=== PATIENT | female | born 1965 | race Caucasian/White ===

== ENCOUNTER 2016-03-29 16:45 | Emergency (ER) | payer OTHER ==
[2016-03-29 16:49] VITALS: BP 138/78; PULSE 85; TEMP 97.7; BMI 32.0
[2016-03-29] MEDS ORDERED: SODIUM CHLORIDE 500 ML IV STA ×2 (17:07→17:28)
--- NOTE | 2016-03-29 17:10 | PDOC ---
History of Present Illness - History of Present Illness Initial Comments: 03/29/16 17:28 The patient is a 50 year old female, with a significant past medical history of hypertension, who presents to the emergency department with diarrhea since Tuesday. She reports returning from [facility] on 03/26/16 after staying there for a month. She reports about 9 episodes of diarrhea today, last episode when she arrived to the ED, which she notes was watery and brown with no trace of blood. She denies chest pain, shortness of breath, headache and dizziness. She denies fever, chills, nausea, vomit, and constipation. She denies dysuria, frequency, urgency and hematuria. Past surgical history: and cervical Social history: denies any toxic habits <America Kaminski - Last Filed: 03/29/16 17:28> - History of Present Illness Initial Comments: 03/29/16 18:24 Physical exam: Alert and oriented 3, well-developed well-nourished, no acute distress, cheerful and cooperative Afebrile, vital signs normal HEENT clear. No pallor or icterus Neck supple without bruit mass or nodes Chest clear bilaterally, full breath sounds CV S1 and S2 normal without murmur rub or gallop pulses full and symmetric no JVD or edema. No tachycardia Abdomen nondistended, normal bowel sounds, soft without mass tenderness or organomegaly Skin clear, no rash, adequate turgor and wet mucous membranes Neurological intact Extremities no CCE Impression: Traveler's diarrhea, recently returned from one month [facility]. No blood in the stool. No fever and no abdominal pain Plan: Symptomatic treatment, fluids, and follow-up if no improvement. Fully ambulatory and in no distress upon discharge with her family to follow-up as directed. No further diarrhea after Imodium therapy. <Mati Borja - Last Filed: 03/29/16 18:26> - General Chief Complaint: Diarrhea Stated Complaint: DIARRHEA Time Seen by Provider: 03/29/16 16:55 Past History <America Kaminski - Last Filed: 03/29/16 17:28> - Past Medical History Anemia: No Asthma: No Cancer: No Cardiac Disorders: No CVA: No COPD: No DVT: No HTN: Yes Hypercholesterolemia: Yes - Immunization History Td Vaccination: No TDAP Vaccination: No Immunization Up to Date: No - Psycho/Social/Smoking Cessation Hx Anxiety: Yes Suicidal Ideation: No Smoking Status: No Smoking History: Never smoked Have you smoked in the past 12 months: No Number of Cigarettes Smoked Daily: 0 Cigars Per Day: 0 Hx Alcohol Use: No Drug/Substance Use Hx: No Substance Use Type: None <Mati Borja - Last Filed: 03/29/16 18:26> - Past Medical History Allergies/Adverse Reactions: Allergies Allergy/AdvReac Type Severity Reaction Status Date / Time Penicillins Allergy Verified 03/29/16 16:46 Home Medications: Ambulatory Orders Loperamide HCl [Imodium -] 2 - 4 mg PO Q8H PRN #20 capsule 03/29/16 Review of Systems - Review of Systems Able to Perform ROS?: Yes Comments:: 03/29/16 17:28 CONSTITUTIONAL: Absent: fever, chills, diaphoresis, generalized weakness, malaise, loss of appetite HEENT: Absent: rhinorrhea, nasal congestion, throat pain, throat swelling, difficulty swallowing, mouth swelling, ear pain, eye pain, visual Changes CARDIOVASCULAR: Absent: chest pain, syncope, palpitations, irregular heart rate, lightheadedness , peripheral edema RESPIRATORY: Absent: cough, shortness of breath, dyspnea with exertion, orthopnea, wheezing, stridor, hemoptysis GASTROINTESTINAL: (+) diarrhea, Absent: abdominal pain, abdominal distension, nausea, vomiting, constipation, melena, hematochezia GENITOURINARY: Absent: dysuria, frequency, urgency, hesitancy, hematuria, flank pain, genital pain MUSCULOSKELETAL: Absent: myalgia, arthralgia, joint swelling SKIN: Absent: rash, itching, pallor HEMATOLOGIC/IMMUNOLOGIC: Absent: easy bleeding, easy bruising, lymphadenopathy, frequent infections ENDOCRINE: Absent: unexplained weight gain, unexplained weight loss, heat intolerance, cold intolerance NEUROLOGIC: Absent: headache, focal weakness or paresthesia, dizziness, unsteady gait, seizure, mental status changes, bladder or bowel incontinence PSYCHIATRIC: Absent: anxiety, depression, suicidal or homicidal ideation, hallucinations <America Kaminski - Last Filed: 03/29/16 17:28> *Physical Exam - Vital Signs Last Vital Signs Temp Pulse Resp BP Pulse Ox 97.7 F 85 18 138/78 100 03/29/16 16:45 03/29/16 16:45 03/29/16 16:45 03/29/16 16:45 03/29/16 16:45 - Physical Exam Comments: 03/29/16 17:29 GENERAL: Well developed, well nourished. Awake and alert. No acute distress. HEENT: Normocephalic, atraumatic. PERRLA, EOMI. No conjunctival pallor. Sclera are non- icteric. Moist mucous membranes. Oropharynx is clear. NECK: Supple. Full ROM. No JVD. Carotid pulses 2+ and symmetric, without bruits. No thyromegaly. No lymphadenopathy. CARDIOVASCULAR: Regular rate and rhythm. No murmurs, rubs, or gallops. Distal pulses are 2+ and symmetric. PULMONARY: No evidence of respiratory distress. Lungs clear to auscultation bilaterally. No wheezing, rales or rhonchi. ABDOMINAL: Soft. Non-tender. Non-distended. No rebound or guarding. No organomegaly. Normoactive bowel sounds. MUSCULOSKELETAL Normal range of motion at all joints. No bony deformities or tenderness. No CVA tenderness. EXTREMITIES: No cyanosis. No clubbing. No edema. No calf tenderness. SKIN: Warm and dry. Normal capillary refill. No rashes. No jaundice. NEUROLOGICAL: Alert, awake, appropriate. Cranial nerves 2-12 intact. No motor deficits in the upper extremities and lower extremities. Normoreflexic in the upper and lower extremities. Normal speech. Gait is normal without ataxia. PSYCHIATRIC: Cooperative. Good eye contact. Appropriate mood and affect. <America Kaminski - Last Filed: 03/29/16 17:28> - Vital Signs Last Vital Signs Temp Pulse Resp BP Pulse Ox 97.7 F 85 18 138/78 100 03/29/16 16:45 03/29/16 16:45 03/29/16 16:45 03/29/16 16:45 03/29/16 16:45 <Mati Borja - Last Filed: 03/29/16 18:26> ED Treatment Course - LABORATORY CBC & Chemistry Diagram: 03/29/16 17:21 03/29/16 17:21 <America Kaminski - Last Filed: 03/29/16 17:28> - LABORATORY CBC & Chemistry Diagram: 03/29/16 17:21 03/29/16 17:21 <Mati Borja - Last Filed: 03/29/16 18:26> Medical Decision Making - Medical Decision Making 03/29/16 17:55 CBC, chemistries, urinalysis without significant abnormalities. Specifically, BUN 18 and creatinine 0.9. 03/29/16 17:55 No further diarrhea, no nausea or vomiting, abdomen remains soft and nontender. <Mati Borja - Last Filed: 03/29/16 18:26> *DC/Admit/Observation/Transfer - Attestations Scribe Attestion: 03/29/16 17:29 Documentation prepared by America Kaminski, acting as medical billing associate for Mati Martinez MD <America Kaminski - Last Filed: 03/29/16 17:28> - Discharge Dispostion Admit: No <Mati Borja - Last Filed: 03/29/16 18:26> Diagnosis at time of Disposition: Gastroenteritis - Discharge Dispostion Disposition: HOME Condition at time of disposition: Improved - Prescriptions Prescriptions: Loperamide HCl [Imodium -] 2 - 4 mg PO Q8H PRN #20 capsule PRN Reason: Diarrhea - Referrals Referrals: Shalom Berumen MD [Staff Physician] - - Patient Instructions Printed Discharge Instructions: DI for Diarrhea and Traveler's Diarrhea -- Adult - Post Discharge Activity Work/School Note: Back to Work
[2016-03-29] MEDS ORDERED: LOPERAMIDE HCL 2 MG CAPSULE PO ONE (17:28)
[2016-03-29] MEDS ORDERED: LOPERAMIDE HCL 2 MG CAPSULE ONE (17:29)
[2016-03-29 17:30] LABS: URINE APPEARANCE Clear; URINE BILIRUBIN Negative (NEGATIVE); URINE BLOOD Negative (NEGATIVE); URINE GLUCOSE (UA) Negative (NEGATIVE); URINE KETONE Negative (NEGATIVE); URINE LEUK ESTERASE Trace (NEGATIVE); URINE NITRITE Negative (NEGATIVE); URINE PROTEIN Negative (NEGATIVE); URINE UROBILINOGEN 0.2 E.U/dl (0.2-1.0)
[2016-03-29 17:31] LABS: URINE COLOR YELLOW
[2016-03-29 17:34] LABS: BASOPHIL 0.4 % (0-2.0); EOSINOPHIL 1.8 % (0-4.5); MCH 30.8 pg (25.7-33.7); MCHC 32.3 g/dl (32.0-36.0); MEAN CELL VOLUME 95.1 fl (80-96); MEAN PLT VOLUME 7.9 fl (7.5-11.1); NEUTROPHILS 60.5 % (42.8-82.8); PLATELET COUNT 236 K/MM3 (134-434); RDW 13.8 % (11.6-15.6); WHITE BLOOD COUNT 8.5 K/mm3 (4.0-10.0)
[2016-03-29 17:52] LABS: ALBUMIN 4.2 g/dl (3.5-5.0); ALK PHOS 86 U/L (32-92); ANION GAP 11 (8-16); BILIRUBIN,TOTAL 0.4 mg/dl (0.2-1.0); CALCIUM 9.7 mg/dl (8.4-10.2); CO2 27 mmol/L (22-28); CREATININE 0.9 mg/dl (0.6-1.3); GLUCOSE,RANDOM 101 mg/dl (74-106); SGOT/AST 31 U/L (10-42); SGPT/ALT 26 U/L (10-40); TOT PROT 8.1 g/dl (6.4-8.3)
== END 2016-03-29 18:44 | disposition home or self-care (01) ==
LOC: FER 16:45
PROC: 3E0337Z Introduction of Electrolytic and Water Balance Substance into Peripheral Vein, Percutaneous Approach (ICD-10-PCS; principal; 2016-03-29)
DX: K52.9 Noninfective gastroenteritis and colitis, unspecified (principal); I10 Essential (primary) hypertension; F41.9 Anxiety disorder, unspecified
CPT/HCPCS: 36415; 80053; 81003; 83690; 84703; 85025; 96360; 96361; 99283-25

== ENCOUNTER 2017-02-03 18:27 | Emergency (ER) | payer SELFPAY ==
[2017-02-03] MEDS ORDERED: KETOROLAC TROMETHAMINE 30 MG/1 ML VIAL IVPUSH ONE (18:28)
[2017-02-03] MEDS ORDERED: SODIUM CHLORIDE 1,000 ML IV STA ×2 (18:28→20:12)
[2017-02-03 18:37] VITALS: BP 137/84; PULSE 83; TEMP 98.9; BMI 31.1
--- NOTE | 2017-02-03 18:40 | PDOC ---
History of Present Illness - General History Source: Patient Exam Limitations: No Limitations - History of Present Illness Initial Comments: 02/03/17 19:05 The patient is a 51-year-old female, with a significant past medical history of prediabetes, who presents with tactile fever, chills, body aches, sore throat, and nonproductive cough that began yesterday. 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 She reports feeling weak and has been experiencing a loss of appetite. Pt reported to the ED today because she believes she has the flu. She denies having any other symptoms. <Kacie Isbell - Last Filed: 02/03/17 19:05> - General History Source: Patient Exam Limitations: No Limitations <Kenneth Stacy - Last Filed: 02/04/17 20:24> - General Chief Complaint: Respiratory Stated Complaint: COUGH, BODY ACHES, SORE THROAT Time Seen by Provider: 02/03/17 18:28 Past History <Kacie Isbell - Last Filed: 02/03/17 19:05> - Past Medical History Anemia: No Asthma: No Cancer: No Cardiac Disorders: No CVA: No COPD: No DVT: No HTN: Yes Hypercholesterolemia: Yes - Immunization History Td Vaccination: No TDAP Vaccination: No Immunization Up to Date: No - Suicide/Smoking/Psychosocial Hx Smoking Status: No Smoking History: Never smoked Have you smoked in the past 12 months: No Number of Cigarettes Smoked Daily: 0 Cigars Per Day: 0 Hx Alcohol Use: No Drug/Substance Use Hx: No Substance Use Type: None <Kenneth Stacy - Last Filed: 02/04/17 20:24> - Past Medical History Allergies/Adverse Reactions: Allergies Allergy/AdvReac Type Severity Reaction Status Date / Time Penicillins Allergy Verified 02/03/17 18:29 Home Medications: Ambulatory Orders Metformin HCl 500 mg PO BID 02/03/17 Review of Systems - Review of Systems Able to Perform ROS?: Yes Comments:: 02/03/17 19:06 GENERAL/CONSTITUTIONAL: (+)Weakness, body aches, chills, tactile fever. HEAD, EYES, EARS, NOSE AND THROAT: (+)Sore throat. No change in vision. No ear pain or discharge. CARDIOVASCULAR: No chest pain or shortness of breath. RESPIRATORY: (+)Cough. No wheezing, or hemoptysis. SKIN: No rash GASTROINTESTINAL: No nausea, vomiting, diarrhea or constipation. GENITOURINARY: No dysuria, frequency, or change in urination. MUSCULOSKELETAL: No joint or muscle swelling or pain. No neck or back pain. NEUROLOGIC: No headache, vertigo, loss of consciousness, or change in strength/ sensation. ENDOCRINE: No increased thirst. No abnormal weight change. HEMATOLOGIC/LYMPHATIC: No anemia, easy bleeding, or history of blood clots. ALLERGIC/IMMUNOLOGIC: No hives or skin allergy. <Kacie Isbell - Last Filed: 02/03/17 19:05> *Physical Exam - Vital Signs Last Vital Signs Temp Pulse Resp BP Pulse Ox 98.9 F 83 18 137/84 99 02/03/17 18:27 02/03/17 18:27 02/03/17 18:27 02/03/17 18:27 02/03/17 18:27 - Physical Exam Comments: 02/03/17 19:08 GENERAL: Awake, alert, and fully oriented, in no acute distress HEAD: No signs of trauma ENT: Auricles normal inspection, hearing grossly normal, nares patent, oropharynx clear EYES: PERRLA, EOMI, sclera anicteric, conjunctiva clear without exudates. Moist mucosa. NECK: Normal ROM, supple, no lymphadenopathy, JVD, or masses LUNGS: Breath sounds equal, clear to auscultation bilaterally. No wheezes, and no crackles HEART: Regular rate and rhythm, normal S1 and S2, no murmurs, rubs or gallops ABDOMEN: Soft, nontender, normoactive bowel sounds. No guarding, no rebound. No masses EXTREMITIES: Normal range of motion, no edema. No clubbing or cyanosis. No cords, erythema, or tenderness NEUROLOGICAL: Cranial nerves II through XII grossly intact. Normal speech, normal gait SKIN: Warm, Dry, normal turgor, no rashes or lesions noted <Kacie Isbell - Last Filed: 02/03/17 19:05> ED Treatment Course - LABORATORY CBC & Chemistry Diagram: 02/03/17 18:45 02/03/17 18:45 - ADDITIONAL ORDERS Additional order review: 02/03/17 18:45 RBC 3.99 MCV 96.6 H MCHC 34.4 RDW 13.4 MPV 8.4 Neutrophils % 61.3 Lymphocytes % 28.2 Monocytes % 8.1 Eosinophils % 1.8 Basophils % 0.6 - Medications Given in the ED: ED Medications Discontinued Medications Generic Name Dose Route Start Last Admin Trade Name Parisa PRN Reason Stop Dose Admin Ketorolac Tromethamine 30 mg 02/03/17 18:28 02/03/17 18:50 Toradol Injection - IVPUSH 02/03/17 18:29 30 mg ONCE ONE Administration <Kacie Isbell - Last Filed: 02/03/17 19:05> - LABORATORY CBC & Chemistry Diagram: 02/03/17 18:45 02/03/17 18:45 <Kenneth Stacy - Last Filed: 02/04/17 20:24> Medical Decision Making - Medical Decision Making 02/03/17 18:31 A portion of this note was documented by scribe services under my direction. I have reviewed the details of the note, within reason, and agree with the documentation with the following case summary and management plan written by me. Patient treated in the ED. Nursing notes are reviewed and incorporated into the medical decision-making. Vital signs reviewed. Peripheral IV access obtained by the nurse, laboratory studies are drawn and sent, reviewed and interpreted by myself. Vital Signs Temp Pulse Resp BP Pulse Ox 98.9 F 83 18 137/84 99 02/03/17 18:27 02/03/17 18:27 02/03/17 18:27 02/03/17 18:27 02/03/17 18:27 51-year-old female with past medical history of prediabetes presents with body aches, nonproductive cough, chills and tactile fever since yesterday. 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 States that she's been feeling generally weak and a poor appetite so came into the ED. She is concerned that she may have the flu. The patient does have flulike symptoms. We'll swab for influenza as the patient is within the window for Tamiflu. Labs, symptom control and IV fluids and reassess. Differential includes viral syndrome, bronchitis. 02/03/17 18:52 [facility] Saini for further management and disposition. <Kenneth Stacy - Last Filed: 02/04/17 20:24> *DC/Admit/Observation/Transfer - Attestations Scribe Attestion: 12/07/17 19:09 Documentation prepared by Kacie Isbell, acting as medical lab scientist for Kenneth Stacy MD. <Kacie Isbell - Last Filed: 02/03/17 19:05> <Kenneth Stacy - Last Filed: 02/04/17 20:24> Diagnosis at time of Disposition: Viral syndrome - Discharge Dispostion Disposition: HOME Condition at time of disposition: Stable - Patient Instructions Printed Discharge Instructions: DI for Viral Syndrome Additional Instructions: Rest; drink plenty of fluids No work tomorrow Motrin/Aleve/Tylenol as needed for pain and fever Return or your doctor if you have productive cough/high fever - Post Discharge Activity Forms/Work/School Notes: Back to Work
[2017-02-03] MEDS ORDERED: KETOROLAC TROMETHAMINE 30 MG/1 ML VIAL ONE (18:46)
[2017-02-03 18:52] LABS: RDW 13.4 % (11.6-15.6)
[2017-02-03 18:55] LABS: BASOPHIL 0.6 % (0-2.0); EOSINOPHIL 1.8 % (0-4.5); MCH 33.2 pg (25.7-33.7); MCHC 34.4 g/dl (32.0-36.0); MEAN CELL VOLUME 96.6 fl (80-96); MEAN PLT VOLUME 8.4 fl (7.5-11.1); NEUTROPHILS 61.3 % (42.8-82.8); PLATELET COUNT 189 K/MM3 (134-434); WHITE BLOOD COUNT 8.2 K/mm3 (4.0-10.8)
[2017-02-03 19:08] LABS: ALBUMIN 3.8 g/dl (3.5-5.0); ALK PHOS 64 U/L (32-92); ANION GAP 7 (8-16); BILIRUBIN,TOTAL 0.3 mg/dl (0.2-1.0); CALCIUM 9.5 mg/dl (8.4-10.2); CO2 28 mmol/L (22-28); CREATININE 0.7 mg/dl (0.6-1.3); GLUCOSE,RANDOM 94 mg/dl (74-106); SGOT/AST 22 U/L (10-42); SGPT/ALT 20 U/L (10-40)
--- NOTE | 2017-02-03 20:27 | PDOC ---
*Physical Exam - Vital Signs Last Vital Signs Temp Pulse Resp BP Pulse Ox 98.9 F 83 18 137/84 99 02/03/17 18:27 02/03/17 18:27 02/03/17 18:27 02/03/17 18:27 02/03/17 18:27 ED Treatment Course - LABORATORY CBC & Chemistry Diagram: 02/03/17 18:45 02/03/17 18:45 - ADDITIONAL ORDERS Additional order review: Laboratory Results 02/03/17 18:45 Sodium 136 Potassium 3.9 Chloride 101 Carbon Dioxide 28 Anion Gap 7 L BUN 19 H Creatinine 0.7 D Creat Clearance w eGFR > 60 Random Glucose 94 Calcium 9.5 Total Bilirubin 0.3 D AST 22 D ALT 20 D Alkaline Phosphatase 64 D Total Protein 7.0 Albumin 3.8 02/03/17 18:35 Influenza Types A,B Antigen (JEREMI) - Preliminary Nasopharyngeal Swab - Preliminary 02/03/17 18:45 RBC 3.99 MCV 96.6 H MCHC 34.4 RDW 13.4 MPV 8.4 Neutrophils % 61.3 Lymphocytes % 28.2 Monocytes % 8.1 Eosinophils % 1.8 Basophils % 0.6 - Medications Given in the ED: ED Medications Discontinued Medications Generic Name Dose Route Start Last Admin Trade Name Freq PRN Reason Stop Dose Admin Sodium Chloride 1,000 mls @ 1,000 mls/hr 02/03/17 18:28 02/03/17 18:40 Normal Saline - IV 02/03/17 19:27 1,000 mls/hr ASDIR STA Administration Ketorolac Tromethamine 30 mg 02/03/17 18:28 02/03/17 18:50 Toradol Injection - IVPUSH 02/03/17 18:29 30 mg ONCE ONE Administration Progress Note - Progress Note Progress Note: Care of this patient received from Dr. Stacy. Influenza swab negative. Patient will be discharged with instructions to rest and drink plenty of fluids. No work tomorrow (documentation provided). *DC/Admit/Observation/Transfer Diagnosis at time of Disposition: Viral syndrome - Discharge Dispostion Disposition: HOME Condition at time of disposition: Stable - Referrals - Patient Instructions Printed Discharge Instructions: DI for Viral Syndrome Additional Instructions: Rest; drink plenty of fluids No work tomorrow Motrin/Aleve/Tylenol as needed for pain and fever Return or your doctor if you have productive cough/high fever - Post Discharge Activity Forms/Work/School Notes: Back to Work
== END 2017-02-03 20:48 | disposition home or self-care (01) ==
LOC: FER 18:27
DX: B34.9 Viral infection, unspecified (principal); R73.03 Prediabetes; I10 Essential (primary) hypertension; E78.00 Pure hypercholesterolemia, unspecified
CPT/HCPCS: 36415; 80053; 85025; 87804; 99285-25

== ENCOUNTER 2017-06-04 16:20 | Emergency (ER) | payer OTHER ==
[2017-06-04] MEDS ORDERED: IBUPROFEN 600 MG TABLET (FP) PO ONE ×2 (16:42→16:46)
--- NOTE | 2017-06-04 16:42 | PDOC ---
History of Present Illness - General History Source: Patient Exam Limitations: No Limitations - History of Present Illness Initial Comments: 06/04/17 16:48 The patient is a 51 year old female, with a significant past medical history pre diabetes, hypercholesterolemia, who presents to the emergency department with, body aches and bilateral eye discharge beginning this morning. The patient states that upon waking up this morning she noticed she had discharge from her eyes and attempted to wash her eyes with warm water. However, the patient states she continued to have the eye discharge which prompted her to come to the ED for evaluation. The patient also reports body aches upon waking up which she reports as a right sided chest pain that radiates around to the right side of her back. She denies recent falls or trauma. She denies contact lens use. She denies any recent loss of vision. She denies recent fevers, chills, headache or dizziness. She denies recent nausea, vomit, diarrhea or constipation. She denies recent dysuria, frequency, urgency or hematuria. She denies recent cardiac chest pain or shortness of breath. She denies any swelling or calf tenderness. Allergies: Penicillins Primary Care Physician: Jay Ervin MD <Brenton Cardona - Last Filed: 06/04/17 16:59> <Cici Lange - Last Filed: 06/04/17 18:20> - General Chief Complaint: Cold Symptoms Stated Complaint: BODY ACHES, EYE DISCHARGE Time Seen by Provider: 06/04/17 16:40 Past History <Brenton Cardona - Last Filed: 06/04/17 16:59> - Past Medical History Anemia: No Asthma: No Cancer: No Cardiac Disorders: No CVA: No COPD: No DVT: No Dialysis: (PREDIABETES) HTN: Yes Hypercholesterolemia: Yes - Immunization History Td Vaccination: No TDAP Vaccination: No Immunization Up to Date: No - Suicide/Smoking/Psychosocial Hx Smoking Status: No Smoking History: Never smoked Have you smoked in the past 12 months: No Number of Cigarettes Smoked Daily: 0 Cigars Per Day: 0 Hx Alcohol Use: No Drug/Substance Use Hx: No Substance Use Type: None <Cici Lange - Last Filed: 06/04/17 18:20> - Past Medical History Allergies/Adverse Reactions: Allergies Allergy/AdvReac Type Severity Reaction Status Date / Time Penicillins Allergy Verified 06/04/17 16:41 Home Medications: Ambulatory Orders NK [No Known Home Medication] 06/04/17 Review of Systems - Review of Systems Comments:: 06/04/17 16:49 GENERAL/CONSTITUTIONAL: No fever or chills. No weakness. HEAD, EYES, EARS, NOSE AND THROAT: (+) Bilateral eye discharge. No change in vision. No ear pain or discharge. No sore throat. CARDIOVASCULAR: No cardiac chest pain or shortness of breath. RESPIRATORY: No cough, wheezing, or hemoptysis. GASTROINTESTINAL: No nausea, vomiting, diarrhea or constipation. GENITOURINARY: No dysuria, frequency, or change in urination. MUSCULOSKELETAL: (+) Right sided chest pain. (+) Right sided back pain. No neck pain. SKIN: No rash NEUROLOGIC: No headache, vertigo, loss of consciousness, or change in strength/ sensation. ENDOCRINE: No increased thirst. No abnormal weight change. HEMATOLOGIC/LYMPHATIC: No anemia, easy bleeding, or history of blood clots. ALLERGIC/IMMUNOLOGIC: No hives or skin allergy. <Brenton Cardona - Last Filed: 06/04/17 16:59> *Physical Exam - Physical Exam Comments: GENERAL: Awake, alert, and fully oriented, in no acute distress HEAD: No signs of trauma EYES: PERRLA, EOMI, sclera anicteric. +Conjunctival injection with purulent discharge R>L. ENT: Auricles normal inspection, hearing grossly normal, nares patent, oropharynx clear without exudates. Moist mucosa NECK: Normal ROM, supple. No JVD or masses. +Anterior cervical LAD. LUNGS: Breath sounds equal, clear to auscultation bilaterally. No wheezes, and no crackles. Intermittent dry cough. HEART: Regular rate and rhythm, normal S1 and S2, no murmurs, rubs or gallops ABDOMEN: Soft, nontender, normoactive bowel sounds. No guarding, no rebound. No masses EXTREMITIES: Normal range of motion, no edema. No clubbing or cyanosis. No cords, erythema, or tenderness NEUROLOGICAL: Cranial nerves II through XII grossly intact. Normal speech, normal gait SKIN: Warm, Dry, normal turgor, no rashes or lesions noted. <Cici Lange - Last Filed: 06/04/17 18:20> Medical Decision Making - Medical Decision Making Pt presents with B/L conjunctivitis with purulent drainage. Erythomycin applied in ED, patient instructed for how to continue at home. Motrin or tylenol as needed for aches and pains. <Cici Lange - Last Filed: 06/04/17 18:20> *DC/Admit/Observation/Transfer - Attestations Scribe Attestion: 06/04/17 16:50 Documentation prepared by Brenton Cardona, acting as medical records assistant for Cici Lange MD. <Brenton Cardona - Last Filed: 06/04/17 16:59> - Discharge Dispostion Admit: No <Cici Lange - Last Filed: 06/04/17 18:20> Diagnosis at time of Disposition: Viral syndrome Conjunctivitis Qualifiers: Conjunctivitis type: acute Acute conjunctivitis type: unspecified Laterality: bilateral Qualified Code(s): H10.33 - Unspecified acute conjunctivitis, bilateral - Discharge Dispostion Disposition: HOME Condition at time of disposition: Stable - Referrals Referrals: Jay Ervin MD [Primary Care Provider] - - Patient Instructions Printed Discharge Instructions: DI for Conjunctivitis, DI for Viral Syndrome Additional Instructions: Aplicar la eritromicina a ambos prpados 4 veces al da yusef 5-7 ruiz. Print Language: GIBRALTARIAN - Post Discharge Activity Forms/Work/School Notes: Back to Work
[2017-06-04] MEDS ORDERED: POLYMYXIN B SULFATE/TMP 10 ML OPHTHALMIC SOLUTION OU ONE (16:43)
[2017-06-04] MEDS ORDERED: ERYTHROMYCIN 0.5% OPHTHALMIC OINTMENT 3.5 GM TUBE ONE ×2 (16:50→17:39)
[2017-06-04] MEDS ORDERED: ERYTHROMYCIN 0.5% OPHTHALMIC OINTMENT 3.5 GM TUBE OU ONE (16:54)
[2017-06-04 18:41] VITALS: BP 128/75; PULSE 94; TEMP 98.2; BMI 32.5
== END 2017-06-04 17:40 | disposition home or self-care (01) ==
LOC: FER 16:20
DX: B34.9 Viral infection, unspecified (principal); R73.03 Prediabetes; I10 Essential (primary) hypertension
CPT/HCPCS: 71045-TC-FY; 99282-25

== ENCOUNTER 2017-10-30 16:25 | Emergency (ER) | payer OTHER ==
[2017-10-30 16:34] VITALS: BP 129/78; PULSE 94; TEMP 98.2; BMI 32.9
--- NOTE | 2017-10-30 16:57 | PDOC ---
History of Present Illness - General Chief Complaint: Pain Stated Complaint: BODY ACHES Time Seen by Provider: 10/30/17 16:29 History Source: Patient Exam Limitations: No Limitations ( ) - History of Present Illness Initial Comments: 51 yo F prediabetic presents with multiple somatic complaints, stating she feels a heat from the inside, her feet are hot and burning at times. She denies abd pain, cp, SOB, N/V/D. Denies fever, chills. Poor historian, vague complaints. Past History - Past Medical History Allergies/Adverse Reactions: Allergies Allergy/AdvReac Type Severity Reaction Status Date / Time Penicillins Allergy Verified 10/30/17 16:27 Home Medications: Ambulatory Orders Sulfamethoxazole/Trimethoprim [Bactrim Ds -] 1 tab PO BID #6 tablet 10/30/17 Anemia: No Asthma: No Cancer: No Cardiac Disorders: No CVA: No COPD: No DVT: No Diabetes: No Dialysis: (PREDIABETES) HTN: Yes Hypercholesterolemia: Yes - Surgical History Cholecystectomy: Yes - Immunization History Td Vaccination: No TDAP Vaccination: No Immunization Up to Date: No - Suicide/Smoking/Psychosocial Hx Smoking Status: No Smoking History: Never smoked Have you smoked in the past 12 months: No Number of Cigarettes Smoked Daily: 0 Cigars Per Day: 0 Information on smoking cessation initiated: No Hx Alcohol Use: No Drug/Substance Use Hx: No Substance Use Type: None Review of Systems - Review of Systems Able to Perform ROS?: Yes Comments:: GENERAL/CONSTITUTIONAL: No fever or chills. No weakness. HEAD, EYES, EARS, NOSE AND THROAT: No change in vision. No ear pain or discharge. No sore throat. CARDIOVASCULAR: No chest pain or shortness of breath. RESPIRATORY: No cough, wheezing, or hemoptysis. GASTROINTESTINAL: No nausea, vomiting, diarrhea or constipation. GENITOURINARY: No dysuria, frequency, or change in urination. MUSCULOSKELETAL: No joint or muscle swelling or pain. No neck or back pain. SKIN: No rash NEUROLOGIC: No headache, vertigo, loss of consciousness, or change in strength/ sensation. ENDOCRINE: No increased thirst. No abnormal weight change. HEMATOLOGIC/LYMPHATIC: No anemia, easy bleeding, or history of blood clots. ALLERGIC/IMMUNOLOGIC: No hives or skin allergy. *Physical Exam - Vital Signs Last Vital Signs Temp Pulse Resp BP Pulse Ox 98.2 F 94 H 16 129/78 100 10/30/17 16:26 10/30/17 16:26 10/30/17 16:26 10/30/17 16:26 10/30/17 16:26 - Physical Exam Comments: GENERAL: Awake, alert, and fully oriented, in no acute distress HEAD: No signs of trauma EYES: PERRLA, EOMI, sclera anicteric, conjunctiva clear ENT: Auricles normal inspection, hearing grossly normal, nares patent, oropharynx clear without exudates. Moist mucosa NECK: Normal ROM, supple, no lymphadenopathy, JVD, or masses LUNGS: Breath sounds equal, clear to auscultation bilaterally. No wheezes, and no crackles HEART: Regular rate and rhythm, normal S1 and S2, no murmurs, rubs or gallops ABDOMEN: Soft, nontender, normoactive bowel sounds. No guarding, no rebound. No masses EXTREMITIES: Normal range of motion, no edema. No clubbing or cyanosis. No cords, erythema, or tenderness NEUROLOGICAL: Cranial nerves II through XII grossly intact. Normal speech, normal gait SKIN: Warm, Dry, normal turgor, no rashes or lesions noted. ED Treatment Course - LABORATORY CBC & Chemistry Diagram: 10/30/17 17:42 10/30/17 17:42 Medical Decision Making - Medical Decision Making Pt presented with nonspecific complaints, malaise. Labs sent including CBC, CMP , trop, UA. Found to have UTI. Stable for DC home. *DC/Admit/Observation/Transfer Diagnosis at time of Disposition: UTI (urinary tract infection) Qualifiers: Urinary tract infection type: acute cystitis Hematuria presence: without hematuria Qualified Code(s): N30.00 - Acute cystitis without hematuria - Discharge Dispostion Disposition: HOME Condition at time of disposition: Stable Decision to Admit order: No - Prescriptions Prescriptions: Sulfamethoxazole/Trimethoprim [Bactrim Ds -] 1 tab PO BID #6 tablet - Referrals - Patient Instructions Printed Discharge Instructions: DI for Urinary Tract Infection (UTI) Print Language: MACEDONIAN - Post Discharge Activity
[2017-10-30 17:38] LABS: URINE BILIRUBIN Negative (NEGATIVE); URINE COLOR Yellow; URINE GLUCOSE (UA) Negative (NEGATIVE); URINE KETONE Trace (NEGATIVE); URINE NITRITE Negative (NEGATIVE); URINE PROTEIN Trace (NEGATIVE); URINE UROBILINOGEN 0.2 (0.2-1.0)
[2017-10-30 17:39] LABS: URINE APPEARANCE HAZY; URINE LEUK ESTERASE TRACE (NEGATIVE)
[2017-10-30 17:49] LABS: AMORP URATES FEW /hpf (NONE SEEN); EPI CELLS MODERATE /HPF; URINE BACTERIA FEW /hpf (NEGATIVE)
[2017-10-30 17:57] LABS: BASO % 0.8 % (0-2.0); EOS % 2.1 % (0-4.5); HEMATOCRIT 40.3 % (32.4-45.2); HEMOGLOBIN 13.5 GM/dl (10.7-15.3); LYMPH % 41.4 % (8-40); MCH 33.8 pg (25.7-33.7); MCHC 33.5 g/dl (32.0-36.0); MEAN CELL VOLUME 100.6 fl (80-96); MEAN PLT VOLUME 8.7 fl (7.5-11.1); MONO % 5.5 % (3.8-10.2); NEUT % 50.2 % (42.8-82.8); PLATELET COUNT 251 K/MM3 (134-434); RBC 4.01 M/mm3 (3.60-5.2); RDW 14.2 % (11.6-15.6)
[2017-10-30 18:05] LABS: ALBUMIN 4.3 g/dl (3.5-5.0); ALK PHOS 61 U/L (32-92); ANION GAP 5 MMOL/L (8-16); BILIRUBIN,TOTAL 0.4 mg/dl (0.2-1.0); BLOOD UREA NITROGEN 25 mg/dl (7-18); CALCIUM 9.3 mg/dl (8.4-10.2); CHLORIDE 105 mmol/L (98-107); CO2 29 mmol/L (22-28); CREATININE 0.9 mg/dl (0.6-1.3); GLUCOSE,RANDOM 110 mg/dl (74-106); POTASSIUM 3.9 mmol/L (3.5-5.1); SGOT/AST 27 U/L (10-42); SGPT/ALT 31 U/L (10-40); SODIUM 139 mmol/L (136-145); TOT PROT 7.6 g/dl (6.4-8.3)
[2017-10-30] MEDS ORDERED: SULFAMETHOXAZOLE/TRIMETHOPRIM 800MG/160MG D.S. TABLET PO ONE (18:30)
[2017-10-30] MEDS ORDERED: SULFAMETHOXAZOLE/TRIMETHOPRIM 800MG/160MG D.S. TABLET ONE (18:45)
--- NOTE | 2017-10-31 14:13 | EKG ---
Test Reason : Blood Pressure : / mmHG Vent. Rate : 079 BPM Atrial Rate : 079 BPM P-R Int : 114 ms QRS Dur : 086 ms QT Int : 388 ms P-R-T Axes : 011 013 015 degrees QTc Int : 444 ms NORMAL SINUS RHYTHM NORMAL ECG NO PREVIOUS ECGS AVAILABLE Confirmed by ALMA ANDUJAR MD ([id number]) on 10/31/2017 2:12:41 PM Referred By: ROSALINE MARIE Confirmed By:ALMA ANDUJAR MD
== END 2017-10-30 19:36 | disposition home or self-care (01) ==
LOC: FER 16:25
DX: N39.0 Urinary tract infection, site not specified (principal); I10 Essential (primary) hypertension; R73.03 Prediabetes; E78.00 Pure hypercholesterolemia, unspecified
CPT/HCPCS: 36415; 71046-TC-FY; 80053; 81003; 81015; 82550; 82553; 84443; 84484; 85025; 87086; 93005; 99283-25

== ENCOUNTER 2018-03-06 15:43 | Emergency (ER) | payer OTHER ==
--- NOTE | 2018-03-06 15:46 | PDOC ---
"History of Present Illness - General Chief Complaint: Back Pain Stated Complaint: lower back,urinary Time Seen by Provider: 03/06/18 15:46 History Source: Patient Exam Limitations: No Limitations - History of Present Illness Initial Comments: 03/06/18 15:48 52 year old female with PMH renal colic presented to ED for dysuria associated with low back pain and suprapubic tenderness x2 days. Pt described her low back pain to be located bilaterally, no radiation to legs, crampy. Pt denied fever, chills, nausea, vomiting, diarrhea. She also complained of right sided upper back pain x2 days. Past History - Past Medical History Allergies/Adverse Reactions: Allergies Allergy/AdvReac Type Severity Reaction Status Date / Time Penicillins Allergy Verified 10/30/17 16:27 Home Medications: Ambulatory Orders Sulfamethoxazole/Trimethoprim [Bactrim Ds -] 1 tab PO BID #6 tablet 10/30/17 Phenazopyridine HCl [Pyridium] 200 mg PO TID #5 tablet 03/06/18 Sulfamethoxazole/Trimethoprim [Bactrim Ds -] 1 tab PO BID #13 tablet 03/06/18 Anemia: No Asthma: No Cancer: No Cardiac Disorders: No CVA: No COPD: No DVT: No Diabetes: No Dialysis: (PREDIABETES) HTN: Yes Hypercholesterolemia: Yes - Surgical History Cholecystectomy: Yes - Immunization History Td Vaccination: No TDAP Vaccination: No Immunization Up to Date: No - Suicide/Smoking/Psychosocial Hx Smoking Status: No Smoking History: Never smoked Have you smoked in the past 12 months: No Number of Cigarettes Smoked Daily: 0 Cigars Per Day: 0 Hx Alcohol Use: No Drug/Substance Use Hx: No Substance Use Type: None Review of Systems - Review of Systems Able to Perform ROS?: Yes Comments:: 03/06/18 15:52 General: denied fever, chills, night sweats, generalized weakness. HEENT: denied sore throat, rhinorrhea, ear pain. Heart: denied chest pain, palpitations, syncope, lower extremity swelling, diaphoresis. Respiratory: denied shortness of breath, cough, sputum production, hemoptysis. Abdomen: admitted to abdominal pain. denied nausea, vomiting, diarrhea, constipation, blood in stool. : admitted to dysuria, urinary frequency. denied hematuria, urinary incontinence, flank pain. Back: admitted to back pain. Musculoskeletal: denied joint pain, muscle pain, joint swelling. Neurological: denied headache, dizziness, numbness, tingling, weakness. Skin: denied rash, laceration, abrasion. *Physical Exam - Physical Exam Comments: 03/06/18 15:52 Constitutional: Well-nourished, Well-developed, appearing stated age. HEENT: head is normocephalic, atraumatic. EOMI. PERRLA. Neck: supple. Full ROM. Heart: regular rhythm. no murmurs, rubs or gallops. Lungs: clear to auscultation bilaterally. no crackles, rhonchi or wheezing. no stridor. Abdomen: soft, flat. tenderness to palpation of suprapubic area. normal bowel sounds. no rebound, guarding, masses. Back: reproduction of pain with palpation of right rhomboid muscle. no midline t -spine, c-spine or L-spine tenderness. no low back tenderness. Extremities: Peripheral pulses intact. No lower extremity edema. Neurological: CN 2-12 grossly intact. Moves all four extremities. Psych: awake, alert, oriented x3. Follows commands. Answers questions appropriately. Skin: no rash to back. Medical Decision Making - Medical Decision Making 03/06/18 15:52 52 year old female with above PMH presented to ED for dysuria associated with low back pain. Initial Vital Signs Temp Pulse Resp BP Pulse Ox 98.7 F 82 20 149/91 97 03/06/18 15:44 03/06/18 15:44 03/06/18 15:44 03/06/18 15:44 03/06/18 15:44 Afebrile. No tachycardia. No tachypnea. Mild hypertension. No hypoxia on room air. Labs ordered: UA/UC Imaging ordered: none Medications ordered: ibuprofen 600 mg PO, tylenol 650 mg PO Urine Test Results Urine Color Yellow 03/06/18 16:03 Urine Appearance Clear 03/06/18 16:03 Urine pH 6.5 (4.5-8) 03/06/18 16:03 Ur Specific [place] 1.025 (1.010-1.035) 03/06/18 16:03 Urine Protein Negative (NEGATIVE) 03/06/18 16:03 Urine Glucose (UA) Negative (NEGATIVE) 03/06/18 16:03 Urine Ketones Trace (NEGATIVE) 03/06/18 16:03 Urine Blood Negative (NEGATIVE) 03/06/18 16:03 Urine Nitrite Negative (NEGATIVE) 03/06/18 16:03 Urine Bilirubin Negative (NEGATIVE) 03/06/18 16:03 Ur Leukocyte Esterase Negative (NEGATIVE) 03/06/18 16:03 No evidence of UTI. Pt is symptomatic, will treat. Pt is PCN allergic, Bactrim ordered. Spiral CT negative. Pt will be discharged. Will treat symptomatically for UTI, note placed to have pt called with culture results. *DC/Admit/Observation/Transfer Diagnosis at time of Disposition: Back pain, Suprapubic pain - Discharge Dispostion Disposition: HOME Condition at time of disposition: Stable Decision to Admit order: No - Prescriptions Prescriptions: Phenazopyridine HCl [Pyridium] 200 mg PO TID #5 tablet Sulfamethoxazole/Trimethoprim [Bactrim Ds -] 1 tab PO BID #13 tablet - Referrals - Patient Instructions Additional Instructions: You were seen today for burning with urination and back pain. Your CatScan was normal, you do not have any kidney stones. I have sent an antibiotic to your pharmacy to treat a urinary tract infection. Take as advised on label. Do not miss any doses. I have sent a prescription for pyridium to treat the burning with urination, this will turn your urine orange/red, this is normal. Drink lots of clear water to stay hydrated. Return to the Emergency Department for increasing pain, shortness of breath, chest pain, or any other new, worsening or concerning symptoms. | Hoy te vieron por ardor con la miccin y el dolor de espalda. Tu CatScan era normal, no tienes clculos renales. He enviado un antibitico a campbell farmacia para tratar андрей infeccin del tracto urinario. Peter samantha se aconseja en la etiqueta. No te pierdas ninguna dosis. He enviado андрей receta de pyridium para tratar la quemazn al orinar, esto rosy que campbell orina se vuelva naranja / mason, esto es normal. Maria Luz lizz agua meggan para mantenerte hidratado. Regrese al [facility] para aumentar el dolor, la falta de aliento, el dolor en el pecho o cualquier otro sntoma nuevo, que empeore o relacionado. - Post Discharge Activity Forms/Work/School Notes: Back to Work"
[2018-03-06] MEDS ORDERED: IBUPROFEN 600 MG TABLET (FP) PO ONE ×2 (15:50→16:12)
[2018-03-06] MEDS ORDERED: PHENAZOPYRIDINE HCL 100 MG TABLET (FP) PO ONE (15:51)
[2018-03-06] MEDS ORDERED: ACETAMINOPHEN 325 MG TABLET (FP) PO ONE (15:51)
--- NOTE | 2018-03-06 16:01 | PDOC ---
Attending Attestation - Resident Resident Name: Chaparrita Dan - ED Attending Attestation I have performed the following: I have examined & evaluated the patient, The case was reviewed & discussed with the resident, I agree w/resident's findings & plan, Exceptions are as noted - HPI HPI: 03/06/18 15:57 52 year old female with no past medical history presents with lower back pain, suprapubic pain, dysuria since yesterday. Started to note dysuria and burning. Urinary frequency. No fevers, but noted chills. Complaining of lower back discomfort but not flank pain. - Physicial Exam PE: 03/06/18 16:01 GENERAL: Awake, alert, and fully oriented, in no acute distress HEAD: No signs of trauma EYES: sclera anicteric, conjunctiva clear ENT: Auricles normal inspection, hearing grossly normal, nares patent, NECK: Normal ROM, supple ABDOMEN: Soft, normoactive bowel sounds. No guarding, no rebound. No masses. mildly TTP suprapubic. no flank tenderness. vague lower back discomfort on palpation. EXTREMITIES: Normal range of motion, no edema. No clubbing or cyanosis. No cords, erythema, or tenderness NEUROLOGICAL: Cranial nerves II through XII grossly intact. Normal speech, normal gait SKIN: Warm, Dry, normal turgor, no rashes or lesions noted. - Medical Decision Making 03/06/18 16:04 Impression: cystitis. Ua/UC. Bactrim PO BID x 7 days. NSAIDS Pyridium Pt advised on changing fluid colors from pyridium Follow up with PMD 03/06/18 16:42 Urine Test Results Urine Color Yellow 03/06/18 16:03 Urine Appearance Clear 03/06/18 16:03 Urine pH 6.5 (4.5-8) 03/06/18 16:03 Ur Specific [place] 1.025 (1.010-1.035) 03/06/18 16:03 Urine Protein Negative (NEGATIVE) 03/06/18 16:03 Urine Glucose (UA) Negative (NEGATIVE) 03/06/18 16:03 Urine Ketones Trace (NEGATIVE) 03/06/18 16:03 Urine Blood Negative (NEGATIVE) 03/06/18 16:03 Urine Nitrite Negative (NEGATIVE) 03/06/18 16:03 Urine Bilirubin Negative (NEGATIVE) 03/06/18 16:03 Ur Leukocyte Esterase Negative (NEGATIVE) 03/06/18 16:03 Though UA shows no leukocyte esterase, given that she has persistent symptoms, will treat with bactrim antibiotics. 03/06/18 17:22 Pt continues to have pain. Will obtain CT scan to r/o kidney stones. 03/06/18 18:44 CT scan reviewed. No acute findings.
[2018-03-06 16:07] VITALS: BP 149/91; PULSE 82; TEMP 98.7; BMI 33.8
[2018-03-06] MEDS ORDERED: ACETAMINOPHEN 325 MG TABLET (FP) ONE (16:12)
[2018-03-06] MEDS ORDERED: PHENAZOPYRIDINE HCL 100 MG TABLET (FP) ONE (16:13)
[2018-03-06] MEDS ORDERED: SULFAMETHOXAZOLE/TRIMETHOPRIM 800MG/160MG D.S. TABLET PO ONE (16:14)
[2018-03-06 16:31] LABS: PH,URINE 6.5 (4.5-8); URINE APPEARANCE Clear; URINE BILIRUBIN Negative (NEGATIVE); URINE COLOR Yellow; URINE GLUCOSE (UA) Negative (NEGATIVE); URINE KETONE Trace (NEGATIVE); URINE LEUK ESTERASE Negative (NEGATIVE); URINE NITRITE Negative (NEGATIVE); URINE PROTEIN Negative (NEGATIVE); URINE UROBILINOGEN 0.2 (0.2-1.0)
[2018-03-06] MEDS ORDERED: SULFAMETHOXAZOLE/TRIMETHOPRIM 800MG/160MG D.S. TABLET ONE (16:35)
== END 2018-03-06 19:10 | disposition home or self-care (01) ==
LOC: FER 15:43
DX: R30.0 Dysuria (principal); M54.5 Low back pain; R10.30 Lower abdominal pain, unspecified; N30.90 Cystitis, unspecified without hematuria; I10 Essential (primary) hypertension; R73.03 Prediabetes; E78.00 Pure hypercholesterolemia, unspecified; Z88.0 Allergy status to penicillin
CPT/HCPCS: 74176; 81003; 87086; 99283-25

== ENCOUNTER 2018-04-27 21:56 | Emergency (ER) | payer OTHER ==
--- NOTE | 2018-04-27 22:00 | PDOC ---
History of Present Illness - General History Source: Patient Exam Limitations: Language Barrier - History of Present Illness Initial Comments: 04/27/18 22:32 The patient is a 52 year old, danish speaking female, with no significant PMH, who presents to the emergency room complaining of an itchy rash to the chest, abdomen, and upper extremities, onset 1 week ago. The patient states [facility] and that she was prescribed medication, which provided no relief and terminated on Tuesday. She notes acquiring hydrocortisone cream and applying this morning, which also had no relief to symptoms. Patient also reports that the areas with the rash feels hot . Patient denies any new medication or topical cream/ointments prior to onset. Patient denies SOB or throat swelling. Patient denies any other complaints. Allergies: Penicillin Social history: None reported PCP: [facility] <Deidre Hills - Last Filed: 04/27/18 22:50> <Zuly Saini - Last Filed: 04/28/18 01:36> - General Chief Complaint: Rash Stated Complaint: itching Time Seen by Provider: 04/27/18 21:59 Past History <Deidre Hills - Last Filed: 04/27/18 22:50> - Past Medical History Anemia: No Asthma: No Cancer: No Cardiac Disorders: No CVA: No COPD: No DVT: No Diabetes: No Dialysis: (PREDIABETES) HTN: Yes Hypercholesterolemia: Yes - Surgical History Cholecystectomy: Yes - Immunization History Td Vaccination: No TDAP Vaccination: No Immunization Up to Date: No - Suicide/Smoking/Psychosocial Hx Smoking Status: No Smoking History: Never smoked Have you smoked in the past 12 months: No Number of Cigarettes Smoked Daily: 0 Cigars Per Day: 0 Hx Alcohol Use: No Drug/Substance Use Hx: No Substance Use Type: None <Zuly Saini - Last Filed: 04/28/18 01:36> - Past Medical History Allergies/Adverse Reactions: Allergies Allergy/AdvReac Type Severity Reaction Status Date / Time Penicillins Allergy Verified 10/30/17 16:27 Home Medications: Ambulatory Orders Clobetasol Propionate [Temovate] 1 gm TP BID #1 tube 04/27/18 predniSONE [Deltasone -] 20 mg PO BID #10 tablet 04/27/18 Review of Systems - Review of Systems Comments:: 04/27/18 22:33 GENERAL/CONSTITUTIONAL: No fever or chills. No weakness. HEAD, EYES, EARS, NOSE AND THROAT: No change in vision. No ear pain or discharge. No sore throat. CARDIOVASCULAR: No chest pain or shortness of breath. RESPIRATORY: No cough, wheezing, or hemoptysis. GASTROINTESTINAL: No nausea, vomiting, diarrhea or constipation. GENITOURINARY: No dysuria, frequency, or change in urination. MUSCULOSKELETAL: No joint or muscle swelling or pain. No neck or back pain. SKIN: (+)Rash to chest, abdomen, and bilateral upper extremities. NEUROLOGIC: No headache, vertigo, loss of consciousness, or change in strength/ sensation. <Deidre Hills - Last Filed: 04/27/18 22:50> *Physical Exam - Vital Signs Last Vital Signs Temp Pulse Resp BP Pulse Ox 97.7 F 82 18 137/87 100 04/27/18 21:59 04/27/18 21:59 04/27/18 21:59 04/27/18 21:59 04/27/18 21:59 - Physical Exam Comments: 04/27/18 22:33 GENERAL: Awake, alert, and fully oriented, in no acute distress HEAD: No signs of trauma EYES: PERRLA, EOMI, sclera anicteric, conjunctiva clear ENT: Auricles normal inspection, hearing grossly normal, nares patent, oropharynx clear without exudates. Moist mucosa NECK: Normal ROM, supple, no lymphadenopathy, JVD, or masses LUNGS: Breath sounds equal, clear to auscultation bilaterally. No wheezes, and no crackles HEART: Regular rate and rhythm, normal S1 and S2, no murmurs, rubs or gallops ABDOMEN: Soft, nontender, normoactive bowel sounds. No guarding, no rebound. No masses EXTREMITIES: Normal range of motion, no edema. No clubbing or cyanosis. No cords or tenderness NEUROLOGICAL: Cranial nerves II through XII grossly intact. Normal speech SKIN: (+)Upper anterior chest generalized mild erythema, (+)erythematous macular generalized rash of abdominal wall, (+)generalized mild erythema of extensor surfaces of bilateral upper extremeties. Warm, Dry, normal turgor. <Deidre Hills - Last Filed: 02/28/19 22:50> Moderate Sedation - Procedure Monitoring Vital Signs: Procedure Monitoring Vital Signs Temperature 97.7 F 04/27/18 21:59 Pulse Rate 82 04/27/18 21:59 Respiratory Rate 18 04/27/18 21:59 Blood Pressure 137/87 04/27/18 21:59 O2 Sat by Pulse Oximetry (%) 100 04/27/18 21:59 <Deidre Hills - Last Filed: 04/27/18 22:50> ED Treatment Course - Medications Given in the ED: ED Medications Discontinued Medications Generic Name Dose Route Start Last Admin Trade Name Parisa PRN Reason Stop Dose Admin Prednisone 40 mg 04/27/18 22:18 04/27/18 22:23 Deltasone - PO 04/27/18 22:19 40 mg ONCE ONE Administration <Deidre Hills - Last Filed: 04/27/18 22:50> Medical Decision Making - Medical Decision Making Documentation has been prepared under my direction and personally reviewed by me in its entirety. I attest that this documented accurately reflects all work, treatment, procedures and medical decision making performed by me. As noted above, this 52-year-old woman (poor historian) with no significant past medical history presents with approximately one week of pruritic rash. Patient notes no history of upper airway swelling or difficulty swallowing/ breathing. She was seen by [facility] which serves as her PCP soon after onset of the rash. Medication was apparently prescribed by the health care practitioner who evaluated her. Patient has no idea what this medication was; she took it twice a day for a few days but found it ineffective and stopped taking it. She denies any new oral/ topical medication or new soap/detergent/ creams prior to onset of the pruritic rash. Exam as noted. Although rash is not clearly maculopapular, which would be consistent with urticaria, there is an area of erythematous macules on the patient's abdominal skin. No vesicles or open wounds are noted. Most likely etiology of the rash is either ALLERGIC reaction or localized adverse effect to topical preparation. Therefore, patient will be treated with prednisone for 5 days (first dose of 40 mg tonight followed by 20 mg twice a day). Patient has been advised to take a full course of prednisone and to take the medication with food. Also, halobetasol cream will be given to the patient. She has been advised to follow- up with [facility] within the next 48 hours. If she develops any facial swelling or difficulty swallowing/breathing she should return to the ER immediately <Zuly Saini - Last Filed: 04/28/18 01:36> *DC/Admit/Observation/Transfer - Attestations Scribe Attestion: 04/27/18 22:33 Documentation prepared by Deidre Hills, acting as medical massage therapist for Zuly Saini MD. <Deidre Hills - Last Filed: 04/27/18 22:50> <Zuly Saini - Last Filed: 04/28/18 01:36> Diagnosis at time of Disposition: Pruritus Allergic reaction Qualifiers: Encounter type: initial encounter Qualified Code(s): T78.40XA - Allergy, unspecified, initial encounter - Discharge Dispostion Disposition: HOME Condition at time of disposition: Stable - Prescriptions Prescriptions: Clobetasol Propionate [Temovate] 1 gm TP BID #1 tube predniSONE [Deltasone -] 20 mg PO BID #10 tablet - Patient Instructions Printed Discharge Instructions: DI for Itching Additional Instructions: Prednisone 20mg twice a day for 5 days; take with food temovate cream twice a day to area of rash you can use Benadryl 25mg up to twice a day if itching continues; this will make you sleepy return to ER immediately if you have difficulty swallowing or breathing followup with [facility] within the next 2 days Print Language: JAMAICAN
[2018-04-27 22:06] VITALS: BP 137/87; PULSE 82; TEMP 97.7; BMI 33.8
[2018-04-27] MEDS ORDERED: predniSONE 20 MG TABLET (UD) PO ONE (22:18)
[2018-04-27] MEDS ORDERED: predniSONE 20 MG TABLET (UD) ONE (22:21)
== END 2018-04-27 22:34 | disposition home or self-care (01) ==
LOC: FER 21:56
DX: L29.9 Pruritus, unspecified (principal); T78.40XA Allergy, unspecified, initial encounter; I10 Essential (primary) hypertension; R73.03 Prediabetes; E78.00 Pure hypercholesterolemia, unspecified
CPT/HCPCS: 99281-25

== ENCOUNTER 2018-08-14 21:40 | Emergency (ER) | payer OTHER | END 2018-08-14 22:16 | disposition home or self-care (01) | LOC: FER 21:40 ==

== ENCOUNTER 2018-12-16 15:37 | Emergency (ER) | payer OTHER ==
[2018-12-16 16:02] VITALS: BP 142/76; PULSE 92; TEMP 98.4; BMI 33.8
[2018-12-16] MEDS ORDERED: ACETAMINOPHEN 325 MG TABLET (FP) PO ONE (16:54)
[2018-12-16] MEDS ORDERED: NAPROXEN 375 MG TABLET (FP) PO ONE (16:54)
[2018-12-16] MEDS ORDERED: ACETAMINOPHEN 325 MG TABLET (FP) ONE (17:00)
[2018-12-16] MEDS ORDERED: NAPROXEN 375 MG TABLET (FP) ONE (17:01)
--- NOTE | 2018-12-16 17:22 | PDOC ---
Documentation entered by Bailee Rivera SCRIBE, acting as scribe for Arturo Montana MD. Arturo Montana MD: This documentation has been prepared by the Miguel galdamez Adrianna, SCRIBE, under my direction and personally reviewed by me in its entirety. I confirm that the documentation accurately reflects all work, treatment, procedures, and medical decision making performed by me. History of Present Illness - General Chief Complaint: Pain Stated Complaint: WRIST PAIN Time Seen by Provider: 12/16/18 15:40 - History of Present Illness Initial Comments: The patient is a 53 year old female, with no significant PMH, who presents to the ED for evaluation of right wrist pain since this morning. Patient notes she was cleaning earlier this morning at 3am, when she twisted her right wrist and felt immediate sharp pain. She endorses pain all throughout the wrist that radiates into her right hand. Her pain is exacerbated with any movement of the wrist. Patient took 400mg of Motrin around 9am this morning with mild relief of symptoms. She denies any history of arthritis in the right wrist. Denies any other acute complaints. Allergies: Penicillins Surgical History: Cholecystectomy Social History: Denies EtOH, tobacco, or illicit drug use PCP: Dr. Maza Past History - Past Medical History Allergies/Adverse Reactions: Allergies Allergy/AdvReac Type Severity Reaction Status Date / Time Penicillins Allergy Verified 08/14/18 22:01 Home Medications: Ambulatory Orders Naproxen [Naprosyn -] 375 mg PO BID PRN #20 tablet 12/16/18 Anemia: No Asthma: No Cancer: No Cardiac Disorders: No CVA: No COPD: No DVT: No Diabetes: No Dialysis: (PREDIABETES) HTN: Yes Hypercholesterolemia: Yes - Surgical History Cholecystectomy: Yes - Immunization History Td Vaccination: No TDAP Vaccination: No Immunization Up to Date: No - Psycho Social/Smoking Cessation Hx Smoking Status: No Smoking History: Never smoked Have you smoked in the past 12 months: No Number of Cigarettes Smoked Daily: 0 Cigars Per Day: 0 Hx Alcohol Use: No Drug/Substance Use Hx: No Substance Use Type: None Review of Systems - Review of Systems Comments:: CONSTITUTIONAL: Absent: Fever, Chills, Diaphoresis, Generalized Weakness, Malaise, Loss of Appetite HEENT: Absent: Rhinorrhea, Nasal Congestion, Throat Pain, Throat Swelling, Difficulty Swallowing, Mouth Swelling, Ear Pain, Eye Pain, Visual Changes CARDIOVASCULAR: Absent: Chest Pain, Syncope, Palpitations, Irregular Heart Rate, Lightheadedness , Peripheral Edema RESPIRATORY: Absent: Cough, Shortness of Breath, SOB with Exertion, Orthopnea, Wheezing, Stridor, Hemoptysis GASTROINTESTINAL: Absent: Abdominal pain, Abdominal Distension, Nausea, Vomiting, Diarrhea, Constipation, Melena, Hematochezia GENITOURINARY: Absent: Dysuria, Frequency, Urgency, Hesitancy, Flank Pain, Genital Pain MUSCULOSKELETAL: +Right wrist pain. +Right hand pain. Absent: Back pain, Neck Pain SKIN: Absent: Rash, Itching, Pallor HEMATOLOGIC/IMMUNOLOGIC: Absent: Easy Bleeding, Easy Bruising, Lymphadenopathy, Frequent infections ENDOCRINE: Absent: Unexplained Weight Gain, Unexplained Weight Loss, Heat Intolerance, Cold Intolerance NEUROLOGIC: Absent: Headache, Focal Weakness, Paresthesias, Vertigo, Lightheadedness, Unsteady Gait, Seizure, Mental Status Changes, Incontinence PSYCHIATRIC: Absent: Anxiety, Depression *Physical Exam - Vital Signs Last Vital Signs Temp Pulse Resp BP Pulse Ox 98.4 F 92 H 16 142/76 98 12/16/18 15:38 12/16/18 15:38 12/16/18 15:38 12/16/18 15:38 12/16/18 15:38 - Physical Exam Comments: GENERAL: The patient is awake, alert, and fully oriented, in no acute distress. HEAD: Normal with no signs of trauma. EYES: Pupils equal, round and reactive to light, extraocular movements intact, sclera anicteric, conjunctiva clear. EXTREMITIES: Right wrist with tenderness on palpation, but no erythema or swelling. Positive pain with range of motion. Right hand with no point tenderness, but positive diffuse tenderness. All other joints are normal. Gait is normal. NEUROLOGICAL: Normal speech, normal gait. PSYCH: Normal mood, normal affect. SKIN: Warm, Dry, normal turgor, no rashes or lesions noted. No erythema or edema of the right wrist. Skin is intact. ED Treatment Course - RADIOLOGY Radiology Studies Ordered: Category Date Time Status WRIST W/HAND-RIGHT* [RAD] Stat Radiology 12/16/18 16:01 Taken - Medications Given in the ED: ED Medications Discontinued Medications Generic Name Dose Route Start Last Admin Trade Name Freq PRN Reason Stop Dose Admin Acetaminophen 650 mg 12/16/18 16:54 12/16/18 17:04 Tylenol - PO 12/16/18 16:55 650 mg ONCE ONE Administration Naproxen 375 mg 12/16/18 16:54 12/16/18 17:03 Naprosyn - PO 12/16/18 16:55 375 mg ONCE ONE Administration Medical Decision Making - Medical Decision Making Right hand and wrist X-ray reviewed by me. Negative for fracture. Pending official read. 12/16/18 16:47 12/16/18 17:17 53-year-old female twisted her right hand and wrist while cleaning early this morning. She is now complaining of pain on range of motion of the wrist as well as the hand. There are no visible signs of traumatic injury. There are no abrasions. No erythema. No swelling. However, there is pain with range of motion of the right wrist and the joints of the hand. X-rays of the right wrist and hand were performed and reviewed by me. No fracture or dislocation. No abnormality seen. Final radiology reading is pending at the time of discharge. Radiology follow-up procedure activated. Impression: Right wrist and hand sprain Plan: Naprosyn 375 mg twice a day Velcro wrist splint placed by me. Patient advised to remove it at night and to replace it during the day. Note given to excuse from work. 12/16/18 17:21 The scribe's documentation has been prepared under my direction and personally reviewed by me in its entirety. I have confirmed that the note above accurately reflects all work, treatment, procedures, and medical decision- making performed by me. Discharge - Discharge Information Problems reviewed: Yes Clinical Impression/Diagnosis: Right wrist sprain Qualifiers: Encounter type: initial encounter Qualified Code(s): S63.501A - Unspecified sprain of right wrist, initial encounter Condition: Stable Disposition: HOME - Admission No - Additional Discharge Information Prescriptions: Naproxen [Naprosyn -] 375 mg PO BID PRN #20 tablet PRN Reason: Wrist pain - Follow up/Referral Referrals: Jay Ervin MD [Primary Care Provider] - 1 week - Patient Discharge Instructions Patient Printed Discharge Instructions: DI for Wrist Sprain Additional Instructions: You were evaluated today for an injury to your right wrist. The x-ray shows no broken bones. The diagnosis is a sprained right wrist. Rest at home, use the Velcro brace during the day and take it off at night. Elevate the right wrist on a pillow to help relieve the pain. Apply ice packs for 20 minutes every few hours to help relieve the pain. Take Naprosyn twice a day as needed for pain. Follow-up with your doctor in 1 week if the symptoms are not improving. Return to the emergency department for any severe or progressive symptoms. - Post Discharge Activity Work/Back to School Note: Back to Work
== END 2018-12-16 17:35 | disposition home or self-care (01) ==
LOC: FER 15:37
DX: S63.501A Unspecified sprain of right wrist, initial encounter (principal); R73.03 Prediabetes; I10 Essential (primary) hypertension; E78.00 Pure hypercholesterolemia, unspecified; Z88.0 Allergy status to penicillin
CPT/HCPCS: 73110-TC-RT-FY; 73130-TC-RT-FY; 99281-25

== ENCOUNTER 2019-02-05 15:28 | Emergency (ER) | payer OTHER ==
[2019-02-05 15:42] VITALS: BP 113/90; PULSE 85; TEMP 98; BMI 35.3
[2019-02-05] MEDS ORDERED: ONDANSETRON 4 MG/2 ML VIAL IVPUSH ONE (15:50)
[2019-02-05] MEDS ORDERED: SODIUM CHLORIDE 0.9% 1000 ML INFUS.BAG IV ONE (15:50)
[2019-02-05] MEDS ORDERED: ACETAMINOPHEN 1000 MG/100 ML VIAL (NON FORMULARY) IVPB ONE (15:50)
[2019-02-05] MEDS ORDERED: ONDANSETRON 4 MG/2 ML VIAL ONE (16:35)
[2019-02-05] MEDS ORDERED: ACETAMINOPHEN INJECTION 100 ML IVPB ONE (16:35)
[2019-02-05 16:43] LABS: BASO % 0.7 % (0-2.0); HEMATOCRIT 38.6 % (32.4-45.2); HEMOGLOBIN 12.9 GM/dl (10.7-15.3); LYMPH % 43.6 % (8-40); MCH 32.7 pg (25.7-33.7); MCHC 33.3 g/dl (32.0-36.0); MEAN PLT VOLUME 8.2 fl (7.5-11.1); NEUT % 47.7 % (42.8-82.8); PLATELET COUNT 254 K/MM3 (134-434); RBC 3.94 M/mm3 (3.60-5.2); RDW 13.6 % (11.6-15.6); WHITE BLOOD COUNT 7.3 K/mm3 (4.0-10.8)
[2019-02-05 16:52] LABS: ALBUMIN 3.9 g/dl (3.4-5.0); BILIRUBIN,TOTAL 0.6 mg/dl (0.2-1); CALCIUM 9.3 mg/dl (8.5-10); CREATININE 0.7 mg/dl (0.55-1.3)
[2019-02-05 16:54] LABS: POTASSIUM 4.9 mmol/L (3.5-5.1)
[2019-02-05 16:57] LABS: INR 1.08 (0.82-1.09); PROTHROMBIN TIME (PATIENT) 12.1 SEC (10.2-13.0)
--- NOTE | 2019-02-05 18:16 | PDOC ---
Documentation entered by Kirk Dye SCRIBE, acting as scribe for Aida Hurley DO. Aida Hurley, : This documentation has been prepared by the Hardik galdamez Daniel, SCRIBE, under my direction and personally reviewed by me in its entirety. I confirm that the documentation accurately reflects all work, treatment, procedures, and medical decision making performed by me. History of Present Illness - General Chief Complaint: Pain Stated Complaint: BACK PAIN AND ABDOMINAL PAIN WITH BLOATING Time Seen by Provider: 02/05/19 15:32 History Source: Patient Exam Limitations: No Limitations - History of Present Illness Initial Comments: 02/05/19 15:56 The patient is a 53 year old female with no past medical history here today for evaluation of back pain that radiates to her abdomen. The patient reports that her back pain began 2 days ago, radiates to her left lower quadrant, and notes associated bloating, constipation, and mild burning with urination. She notes that her last bowel movement was yesterday and notes that her stool was hard. She also notes an 8 pound weight gain in the past 2 weeks. Patient reports that she saw her PCP who wrote a prescription for an ultrasound but patient reports that she did not want to wait and came to the ER instead. Patient denies headache, lightheadedness. Denies fever, chills. Denies chest pain, shortness of breath. Denies nausea, vomiting, diarrhea. Allergies: penicillins Surgical history: PCP: Jay Ervin Past History - Past Medical History Allergies/Adverse Reactions: Allergies Allergy/AdvReac Type Severity Reaction Status Date / Time Penicillins Allergy Verified 02/05/19 15:29 Home Medications: Ambulatory Orders Pantoprazole Sodium 40 mg PO DAILY 02/05/19 Anemia: No Asthma: No Cancer: No Cardiac Disorders: No CVA: No COPD: No DVT: No Diabetes: No Dialysis: (PREDIABETES) HTN: Yes Hypercholesterolemia: Yes - Surgical History Cholecystectomy: Yes - Immunization History Td Vaccination: No TDAP Vaccination: No Immunization Up to Date: No - Psycho Social/Smoking Cessation Hx Smoking Status: No Smoking History: Never smoked Have you smoked in the past 12 months: No Number of Cigarettes Smoked Daily: 0 Cigars Per Day: 0 Hx Alcohol Use: No Drug/Substance Use Hx: No Substance Use Type: None Review of Systems - Review of Systems Able to Perform ROS?: Yes Comments:: 02/05/19 15:56 GENERAL/CONSTITUTIONAL: No fever or chills. No weakness. HEAD, EYES, EARS, NOSE AND THROAT: No change in vision. No ear pain or discharge. No sore throat. GASTROINTESTINAL: +left lower quadrant abdominal pain. +bloating. + constipation. No nausea, vomiting, or diarrhea GENITOURINARY: +mild burning with urination. No frequency, or change in urination. CARDIOVASCULAR: No chest pain or shortness of breath. RESPIRATORY: No cough, wheezing, or hemoptysis. MUSCULOSKELETAL: +back pain. No joint or muscle swelling or pain. No neck pain. SKIN: No rash NEUROLOGIC: No headache, vertigo, loss of consciousness, or change in strength/ sensation. ENDOCRINE: No increased thirst. No abnormal weight change. HEMATOLOGIC/LYMPHATIC: No anemia, easy bleeding, or history of blood clots. ALLERGIC/IMMUNOLOGIC: No hives or skin allergy. *Physical Exam - Vital Signs Last Vital Signs Temp Pulse Resp BP Pulse Ox 98 F 85 20 113/90 99 02/05/19 15:29 02/05/19 15:29 02/05/19 15:29 02/05/19 15:29 02/05/19 15:29 - Physical Exam 02/05/19 15:57 Constitutional: Awake, alert, oriented. No acute distress. Head: Normocephalic. Atraumatic Eyes: PERRL. EOMI. Conjunctivae are not pale. ENT: Mucous membranes are moist and intact. Posterior pharynx without exudates or erythema. Uvula midline. Neck: Supple. Full ROM. No lymphadenopathy. Cardiovascular: Regular rate. Regular rhythm. S1, S2 regular. Distal pulses are 2+ and symmetric. Pulmonary/Chest: No evidence of respiratory distress. Clear to auscultation bilaterally No wheezing, rales or rhonchi. Abdominal: +left lower quadrant tenderness. Soft and non-distended. No rebound , guarding or rigidity. No organomegaly. No palpable masses. Good bowel sounds. Back: No CVA tenderness. Musculoskeletal: No edema. No cyanosis. No clubbing. Full range of motion in all extremities. Nocalf tenderness. Radial/pedal pulses are intact and 2+ bilaterally Skin: Skin is warm and dry. No petechiae. No purpura. Neurological: Alert and oriented to person, place, and time. Cranial nerves II -XII are grossly intact. Normal speech. Strength is grossly symmetric. No sensory deficits. Psychiatric: Good eye contact. Normal interaction, affect and behavior. ED Treatment Course - LABORATORY CBC & Chemistry Diagram: 02/05/19 16:30 02/05/19 16:30 - ADDITIONAL ORDERS Additional order review: Laboratory Results 02/05/19 02/05/19 02/05/19 16:30 16:30 16:30 PT with INR 12.1 INR 1.08 PTT (Actin FS) 28.8 Sodium 139 Potassium 4.9 Chloride 102 Carbon Dioxide 29 Anion Gap 8 BUN 21.0 H Creatinine 0.7 Est GFR (CKD-EPI)AfAm 114.65 Est GFR (CKD-EPI)NonAf 98.92 Random Glucose 96 Calcium 9.3 Total Bilirubin 0.6 AST 29 ALT 25 Alkaline Phosphatase 61 Total Protein 7.0 Albumin 3.9 Urine Color Urine Appearance Urine pH Urine Protein Urine Glucose (UA) Urine Ketones Urine Blood Urine Nitrite Urine Bilirubin Urine Urobilinogen Ur Leukocyte Esterase Urine RBC Urine WBC Urine Bacteria 02/05/19 16:17 PT with INR INR PTT (Actin FS) Sodium Potassium Chloride Carbon Dioxide Anion Gap BUN Creatinine Est GFR (CKD-EPI)AfAm Est GFR (CKD-EPI)NonAf Random Glucose Calcium Total Bilirubin AST ALT Alkaline Phosphatase Total Protein Albumin Urine Color Yellow Urine Appearance Clear Urine pH 5.5 Urine Protein Negative Urine Glucose (UA) Negative Urine Ketones Negative Urine Blood Negative Urine Nitrite Negative Urine Bilirubin Negative Urine Urobilinogen 0.2 Ur Leukocyte Esterase 1+ Urine RBC 0-2 Urine WBC 5-10 Urine Bacteria Few 02/05/19 16:30 RBC 3.94 MCV 98.0 H MCHC 33.3 RDW 13.6 MPV 8.2 Neutrophils % 47.7 Lymphocytes % 43.6 H Monocytes % 6.0 Eosinophils % 2.0 Basophils % 0.7 - RADIOLOGY Radiology Studies Ordered: Category Date Time Status ABDOMEN & PELVIS CT WITH CONTR [CT] Stat CT Scan 02/05/19 15:49 Ordered - Medications Given in the ED: ED Medications Discontinued Medications Generic Name Dose Route Start Last Admin Trade Name Freq PRN Reason Stop Dose Admin Acetaminophen 1,000 mg 02/05/19 15:50 02/05/19 16:39 Ofirmev Injection - IVPB 02/05/19 15:51 1,000 mg ONCE ONE Administration Ondansetron HCl 4 mg 02/05/19 15:50 02/05/19 16:37 Zofran Injection IVPUSH 02/05/19 15:51 4 mg ONCE ONE Administration Sodium Chloride 1,000 ml 02/05/19 15:50 02/05/19 16:33 Normal Saline - IV 02/05/19 15:51 1,000 ml ONCE ONE Administration Medical Decision Making - Medical Decision Making 02/05/19 18:14 I, Dr. Aida Hurley, DO, attest that this document has been prepared under my direction and personally reviewed by me in its entirety. I further attest, that it accurately reflects all work, treatment, procedures and medical decision -making performed by me. a/p: 53yo female with dysuria, LLQ pain, and back pain since tuesday -saw her pmd on tuesday for bloating who started her on protonix but developed suprapubic pressure, dysuria and LLQ pain -pt with back pain -ddx uti vs pyelo vs renal colic vs constipation -no cva -will send labs, ua -will obtain ct abd/pelvis -will hydrate, tylenol for pain -will monitor and reassess 02/05/19 18:16 no elevated wbc renal function normal mild uti, will start abx pending ct 02/05/19 18:45 pt states feeling better discussed need for abx pending ct 02/05/19 19:17 pt will be signed out to the oncoming ED physician pending ct imaging Discharge - Discharge Information Problems reviewed: Yes Clinical Impression/Diagnosis: UTI (urinary tract infection) Condition: Stable - Follow up/Referral Referrals: Jay Ervin MD [Primary Care Provider] - - Patient Discharge Instructions - Post Discharge Activity
--- NOTE | 2019-02-05 20:29 | PDOC ---
*Physical Exam - Vital Signs Last Vital Signs Temp Pulse Resp BP Pulse Ox 98 F 85 20 113/90 99 02/05/19 15:29 02/05/19 15:29 02/05/19 15:29 02/05/19 15:29 02/05/19 15:29 ED Treatment Course - LABORATORY CBC & Chemistry Diagram: 02/05/19 16:30 02/05/19 16:30 - ADDITIONAL ORDERS Additional order review: Laboratory Results 02/05/19 02/05/19 02/05/19 16:30 16:30 16:30 PT with INR 12.1 INR 1.08 PTT (Actin FS) Sodium 139 Potassium 4.9 Chloride 102 Carbon Dioxide 29 Anion Gap 8 BUN 21.0 H Creatinine 0.7 Est GFR (CKD-EPI)AfAm 114.65 Est GFR (CKD-EPI)NonAf 98.92 Random Glucose 96 Calcium 9.3 Total Bilirubin 0.6 AST 29 ALT 25 Alkaline Phosphatase 61 Total Protein 7.0 Albumin 3.9 Lipase 168 Urine Color Urine Appearance Urine pH Urine Protein Urine Glucose (UA) Urine Ketones Urine Blood Urine Nitrite Urine Bilirubin Urine Urobilinogen Ur Leukocyte Esterase Urine RBC Urine WBC Urine Bacteria 02/05/19 02/05/19 16:30 16:17 PT with INR INR PTT (Actin FS) 28.8 Sodium Potassium Chloride Carbon Dioxide Anion Gap BUN Creatinine Est GFR (CKD-EPI)AfAm Est GFR (CKD-EPI)NonAf Random Glucose Calcium Total Bilirubin AST ALT Alkaline Phosphatase Total Protein Albumin Lipase Urine Color Yellow Urine Appearance Clear Urine pH 5.5 Urine Protein Negative Urine Glucose (UA) Negative Urine Ketones Negative Urine Blood Negative Urine Nitrite Negative Urine Bilirubin Negative Urine Urobilinogen 0.2 Ur Leukocyte Esterase 1+ Urine RBC 0-2 Urine WBC 5-10 Urine Bacteria Few 02/05/19 16:30 RBC 3.94 MCV 98.0 H MCHC 33.3 RDW 13.6 MPV 8.2 Neutrophils % 47.7 Lymphocytes % 43.6 H Monocytes % 6.0 Eosinophils % 2.0 Basophils % 0.7 - Medications Given in the ED: ED Medications Discontinued Medications Generic Name Dose Route Start Last Admin Trade Name Freq PRN Reason Stop Dose Admin Acetaminophen 1,000 mg 02/05/19 15:50 02/05/19 16:39 Ofirmev Injection - IVPB 02/05/19 15:51 1,000 mg ONCE ONE Administration Levofloxacin 750 mg in 150 mls @ 100 mls/hr 02/05/19 18:13 02/05/19 18:49 Levaquin 750 Mg Premixed Ivpb - IVPB 02/05/19 19:42 100 mls/hr ONCE ONE Administration Protocol Ondansetron HCl 4 mg 02/05/19 15:50 02/05/19 16:37 Zofran Injection IVPUSH 02/05/19 15:51 4 mg ONCE ONE Administration Sodium Chloride 1,000 ml 02/05/19 15:50 02/05/19 16:33 Normal Saline - IV 02/05/19 15:51 1,000 ml ONCE ONE Administration ED Progress Note - Progress Note Progress Note: Care of this patient received from Dr. Hurley. Abdominal/pelvic CT performed. Interpretation by Dr. Daley of the radiology staff: Hepatomegaly with diffuse fatty infiltration but no evidence of renal stones, perinephric abscess, perirenal inflammation or other abnormality. Clinical presentation most consistent with urinary tract infection. Although there is no definitive evidence of upper tract infection, since patient had flank pain associated with her infected urine, we will treat her empirically with Levaquin 750 mg daily for 8 days, effective for upper tract infection. First dose was given intravenously here. Prescription for the remainder the course sent to her pharmacy. Meanwhile, the patient should return to the emergency room if she has persistent severe pain, high fever or vomiting she should follow-up with her general doctor, within the next 2 to 3 days Discharge - Discharge Information Problems reviewed: Yes Clinical Impression/Diagnosis: UTI (urinary tract infection) Qualifiers: Urinary tract infection type: site unspecified Hematuria presence: without hematuria Qualified Code(s): N39.0 - Urinary tract infection, site not specified Condition: Stable Disposition: HOME - Additional Discharge Information Prescriptions: levoFLOXacin [Levaquin] 750 mg PO DAILY #7 tab - Follow up/Referral Referrals: Jay Ervin MD [Primary Care Provider] - - Patient Discharge Instructions Patient Printed Discharge Instructions: Urinary Tract Infection Additional Instructions: drink plenty of water Levaquin 750mg daily for 1 week return to ER if you have increased pain, high fever or vomiting followup with Dr Ervin within 2-3 days - Post Discharge Activity
== END 2019-02-05 20:43 | disposition home or self-care (01) ==
LOC: FER 15:28
PROC: 3E033NZ Introduction of Analgesics, Hypnotics, Sedatives into Peripheral Vein, Percutaneous Approach (ICD-10-PCS; principal; 2019-02-05)
PROC: 3E03329 Introduction of Other Anti-infective into Peripheral Vein, Percutaneous Approach (ICD-10-PCS; 2019-02-05)
PROC: 3E033GC Introduction of Other Therapeutic Substance into Peripheral Vein, Percutaneous Approach (ICD-10-PCS; 2019-02-05)
DX: N39.0 Urinary tract infection, site not specified (principal); Z88.0 Allergy status to penicillin
CPT/HCPCS: 36415; 74177-TC; 80053; 81003; 81015; 83690; 85025; 85610; 85730; 87086; 99284-25; J0131; J7030; Q9967

== ENCOUNTER 2019-04-05 13:00 | Emergency (ER) | payer OTHER ==
[2019-04-05 13:17] VITALS: BP 152/86; PULSE 76; TEMP 98.4; BMI 35.3
--- NOTE | 2019-04-05 13:17 | PDOC ---
History of Present Illness - General Chief Complaint: Respiratory Stated Complaint: RESPIRATORY CONDITION Time Seen by Provider: 04/05/19 13:06 History Source: Patient Exam Limitations: No Limitations - History of Present Illness Initial Comments: 04/05/19 13:14 53 y/o female with cough for 1 week. Seen by PMD and placed on Tamilfu and Medrol dose pack. Now with SOB and pressure on chest. No traveling. No N/V/D/c, no back pain or arm pain or jaw pain. Pt has also lost her voice. 04/05/19 13:17 Is this a multiple visit Asthma Patient?: No Past History - Past Medical History Allergies/Adverse Reactions: Allergies Allergy/AdvReac Type Severity Reaction Status Date / Time Penicillins Allergy Verified 04/05/19 13:07 Home Medications: Ambulatory Orders Pantoprazole Sodium 40 mg PO DAILY 02/05/19 Methylprednisolone [Medrol Dose Omid] 4 mg PO ASDIR 04/05/19 Oseltamivir Phosphate [Tamiflu] 75 mg PO BID 04/05/19 Anemia: No Asthma: No Cancer: No Cardiac Disorders: No CVA: No COPD: No DVT: No Diabetes: No Dialysis: (PREDIABETES) GI Disorders: Yes HTN: Yes Hypercholesterolemia: Yes - Surgical History Cholecystectomy: Yes - Immunization History Td Vaccination: No TDAP Vaccination: No Immunization Up to Date: No - Psycho Social/Smoking Cessation Hx Smoking Status: No Smoking History: Never smoked Have you smoked in the past 12 months: No Number of Cigarettes Smoked Daily: 0 Cigars Per Day: 0 Hx Alcohol Use: No Drug/Substance Use Hx: No Substance Use Type: None Review of Systems - Review of Systems Able to Perform ROS?: Yes Is the patient limited Cypriot proficient: No Constitutional: No: Chills, Fever Respiratory: Yes: Cough, Shortness of Breath Cardiac (ROS): Yes: Chest Pain ABD/GI: No: Nausea, Vomiting All Other Systems: Reviewed and Negative *Physical Exam - Physical Exam General Appearance: Yes: Nourished, Appropriately Dressed. No: Apparent Distress HEENT: positive: EOMI, TREVON, Normal ENT Inspection, Normal Voice, Symmetrical, Pharynx Normal Neck: positive: Trachea midline, Normal Thyroid, Supple. negative: Tender, Rigid Respiratory/Chest: positive: Chest Tender (reproducible chest pain on palpation to ACW), Lungs Clear, Normal Breath Sounds. negative: Respiratory Distress Cardiovascular: positive: Regular Rhythm, Regular Rate, S1, S2. negative: Edema , JVD, Murmur Vascular Pulses: Femoral (R): 4+, Femoral (L): 4+, Carotid (R): 4+, Carotid (L) : 4+, Dorsalis-Pedis (R): 4+, Doralis-Pedis (L): 4+ Gastrointestinal/Abdominal: positive: Normal Bowel Sounds, Flat, Soft, Organomegaly. negative: Tender, Pulsatile Mass Lymphatic: negative: Adenopathy, Tenderness, Other Musculoskeletal: positive: Normal Inspection. negative: CVA Tenderness Extremity: positive: Normal Capillary Refill, Normal Inspection, Normal Range of Motion. 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 NML intact, Fully Oriented, Alert, Normal Mood/ Affect, Normal Response, Motor Strength 5/5 Heart Score/ECG Review - History History: Slightly suspicious - Electrocardiogram EKG: Normal - Age Age: 45-65 - Risk Factors Risk Factors Heart Score: Yes Hx Hypertension Based on the list above the patient has:: 1-2 risk factors - Troponin Troponin: </= normal limit - Score Heart Score - Total: 2 - ECG Intrepretation Rhythm: Regular Rhythm Comment:: 04/05/19 13:51 EKG done at 1339 NSR at 71 no STEMI ED Treatment Course - LABORATORY CBC & Chemistry Diagram: 04/05/19 13:20 04/05/19 13:20 ED Progress Note - Progress Note Progress Note: 04/05/19 13:16 Pt with cough and chest pain] Will obtain cardiac work up, appears to be costochondritis. 04/05/19 13:50 CXR NAD 04/05/19 13:54 Pt will be discharge home with costochondritis Continue current medications If worsen return to ER Discharge - Discharge Information Problems reviewed: Yes Clinical Impression/Diagnosis: Costochondritis, acute Condition: Good Disposition: HOME - Admission No - Follow up/Referral Referrals: Jay Ervin MD [Primary Care Provider] - - Patient Discharge Instructions Patient Printed Discharge Instructions: DI for Costochondritis Additional Instructions: Fluids, rest, Motrin Continue current medications If worsen return to ER Follow up with PMD - Post Discharge Activity
[2019-04-05 13:33] LABS: BASO % 0.4 % (0-2.0); EOS % 0.1 % (0-4.5); HEMATOCRIT 42.3 % (32.4-45.2); HEMOGLOBIN 14.2 GM/dl (10.7-15.3); LYMPH % 26.7 % (8-40); MCH 32.7 pg (25.7-33.7); MCHC 33.7 g/dl (32.0-36.0); MEAN CELL VOLUME 97.2 fl (80-96); MEAN PLT VOLUME 7.9 fl (7.5-11.1); MONO % 3.1 % (3.8-10.2); NEUT % 69.7 % (42.8-82.8); PLATELET COUNT 284 K/MM3 (134-434); RBC 4.35 M/mm3 (3.60-5.2); RDW 13.7 % (11.6-15.6); WHITE BLOOD COUNT 10.1 K/mm3 (4.0-10.8)
[2019-04-05 13:41] LABS: ALBUMIN 4.1 g/dl (3.4-5.0); BILIRUBIN,TOTAL 0.5 mg/dl (0.2-1); CALCIUM 9.5 mg/dl (8.5-10); CREATININE 0.7 mg/dl (0.55-1.3); POTASSIUM 4.8 mmol/L (3.5-5.1); TOT PROT 7.8 g/dl (6.4-8.2)
--- NOTE | 2019-04-06 12:15 | EKG ---
Test Reason : Blood Pressure : / mmHG Vent. Rate : 071 BPM Atrial Rate : 071 BPM P-R Int : 110 ms QRS Dur : 082 ms QT Int : 394 ms P-R-T Axes : 007 013 007 degrees QTc Int : 428 ms SINUS RHYTHM WITH SINUS ARRHYTHMIA WITH SHORT AK INCOMPLETE RBBB WHEN COMPARED WITH ECG OF 30-OCT-2017 17:34, NO SIGNIFICANT CHANGE WAS FOUND Confirmed by ROSE BLANCHARD MD ([id number]) on 04/06/2019 12:15:12 PM Referred By: SANTANA NAIK Confirmed By:ROSE BLANCHARD MD
== END 2019-04-05 14:02 | disposition home or self-care (01) ==
LOC: FER 13:00
DX: M94.0 Chondrocostal junction syndrome [Tietze] (principal); Z88.0 Allergy status to penicillin; I10 Essential (primary) hypertension
CPT/HCPCS: 36415; 71046-TC-FY; 80053; 84484; 85025; 93005; 99282-25

== ENCOUNTER 2019-05-10 01:54 | Emergency (ER) | payer OTHER ==
[2019-05-10 01:58] VITALS: BP 147/98; PULSE 80; TEMP 98.1; BMI 33.8
--- NOTE | 2019-05-10 01:58 | PDOC ---
History of Present Illness - General Chief Complaint: Injury Stated Complaint: SHUT CAR DOOR ON FINGER - History of Present Illness Initial Comments: This otherwise healthy [place]ian-speaking woman is accompanied to the ER by her daughter (onsite case manager) with a history of right thumb injury. Approximately 2 hours prior to presentation, the patient closed her car door on her right thumb. Since then, she has had significant swelling and bruising accompanied by pain in the thumb. No previous history of right thumb injury. No other injury sustained. Patient has taken no pain medication since the injury. She noted a small amount of bleeding from the base of the nail but otherwise has no skin breakage/laceration/abrasion. Allergies: Penicillins Surgical History: Cholecystectomy Social History: Denies EtOH, tobacco, or illicit drug use PCP: Dr. Maza Past History - Past Medical History Allergies/Adverse Reactions: Allergies Allergy/AdvReac Type Severity Reaction Status Date / Time Penicillins Allergy Verified 05/10/19 01:55 Home Medications: Ambulatory Orders Pantoprazole Sodium 40 mg PO DAILY 02/05/19 Methylprednisolone [Medrol Dose Omid] 4 mg PO ASDIR 04/05/19 Oseltamivir Phosphate [Tamiflu] 75 mg PO BID 04/05/19 Anemia: No Asthma: No Cancer: No Cardiac Disorders: No CVA: No COPD: No DVT: No Diabetes: No Dialysis: (PREDIABETES) GI Disorders: Yes HTN: Yes Hypercholesterolemia: Yes - Surgical History Cholecystectomy: Yes - Immunization History Td Vaccination: No TDAP Vaccination: No Immunization Up to Date: No - Psycho Social/Smoking Cessation Hx Smoking Status: No Smoking History: Never smoked Have you smoked in the past 12 months: No Number of Cigarettes Smoked Daily: 0 Cigars Per Day: 0 Hx Alcohol Use: No Drug/Substance Use Hx: No Substance Use Type: None *Physical Exam - Physical Exam GENERAL: Adult female, alert and oriented x3 in moderate distress secondary to right thumb pain HEAD: Normal with no signs of trauma. EYES: PERRLA, EOMI, sclera anicteric, conjunctiva clear. EXTREMITIES: Right upper extremitythumb: Moderately tender and edematous with ecchymotic palmar aspect of the distal phalanx No gross deformity seen; minimal amount of dried blood at nail base Thumbnail intact; nail surface partially covered with "gel "artificial nail. Portion of subungual region seen is normal Motor functioning of thumb intact although limited by pain; sensory functioning intact Remainder the extremity exam is normal NEUROLOGICAL: Cranial nerves II through XII grossly intact. Normal speech. No focal neurological deficits. ED Progress Note - Progress Note Progress Note: This otherwise healthy 53-year-old woman presents with crush injury to the right thumb sustained a few hours prior to presentation when she closed her car door on her digit. Exam as noted above. Thumb is edematous and tender with ecchymosis on the palmar aspect of the distal phalanx. No obvious deformity and no skin breakage is evident. Full surface of the subungual region is not assessable since it is partly covered by a gel Toradol 60 mg IM administered for pain relief Right thumb x-ray performed: Preliminary interpretation by anupama evidence of fracture or dislocation seen Simple splint placed on the thumb. Patient instructed to keep right hand at heart level or above at all times and to use cool compresses/ice to the surface of the thumb. They should call /[facility] office later today to arrange follow-up within the next 2 days. She can take [id number] acetaminophen/ibuprofen/naproxen. Documentation not to work for the next 2 days has been given to the patient. Discharge - Discharge Information Problems reviewed: Yes Clinical Impression/Diagnosis: Thumb contusion Qualifiers: Encounter type: initial encounter Damage to nail status: without damage Laterality: right Qualified Code(s): S60.011A - Contusion of right thumb without damage to nail, initial encounter Condition: Stable Disposition: HOME - Follow up/Referral Referrals: Cal Santiago MD [Staff Physician] - Call tomorrow - Patient Discharge Instructions Patient Printed Discharge Instructions: Contusion Additional Instructions: Keep splint in place Elevate at heart level or above as much as possible Ice/cold compresses to the next 1 to 2 days Call hand doctor ( or ) office in a.m. to arrange follow-up within the next 5 days No work tomorrow Tylenol/Motrin/Aleve as needed for pain; take Motrin/Aleve with food Return to ER if you have worsening pain/swelling Print Language: SWEDISH - Post Discharge Activity Work/Back to School Note: Back to Work
[2019-05-10] MEDS ORDERED: KETOROLAC TROMETHAMINE 60 MG/2 ML VIAL IM ONE (02:02)
[2019-05-10] MEDS ORDERED: KETOROLAC TROMETHAMINE 60 MG/2 ML VIAL ONE (02:03)
== END 2019-05-10 02:40 | disposition home or self-care (01) ==
LOC: FER 01:54
PROC: 2W3GX1Z Immobilization of Right Thumb using Splint (ICD-10-PCS; principal; 2019-05-10)
PROC: 3E0233Z Introduction of Anti-inflammatory into Muscle, Percutaneous Approach (ICD-10-PCS; 2019-05-10)
DX: S60.011A Contusion of right thumb without damage to nail, initial encounter (principal); W20.8XXA Other cause of strike by thrown, projected or falling object, initial encounter; Y93.9 Activity, unspecified; Y92.410 Unspecified street and highway as the place of occurrence of the external cause
CPT/HCPCS: 73140-TC-RT-FY; 99284-25